=== PATIENT | female | born 1975 | race Caucasian/White ===

== ENCOUNTER → 2017-05-13 16:20 | Outpatient (CLI) | payer MEDICARE, MEDICAID, SELFPAY ==
--- NOTE | 2017-05-13 | CER_PTH ---
PATIENT: KELLE MEDEL LOC: [facility] U#:[id number] AGE/SX: 49/F ROOM: RE05/13/[address]: Dr. Connor Jiménez MD : 1975 BED: DIS: SPEC #: [id number] RECD: 05/13/17 16:18 STATUS: TOMMY RAMIRESVivek #: [id number] YARED: 05/13/17 00:[address]: Connor Jiménez DEPT: SURGICAL PATHOLOGY RECD BY: Rasheed Peace ENTERED: 05/14/17 08:52 SP TYPE: CERV OTHR DR: Dr. Charles Crump MD Tissues: Uterine cervix, NOS Procedures: Surgery Specimen Level IV HEADER OPERATION: ECC PRE-OP DIAGNOSIS: Postcoital bleeding TISSUE SUBMITTED: ECC MICROSCOPIC DIAGNOSIS Endocervix, curettings: Scant strips of benign superficial endocervix. AM:michael 05/15/17 COMMENT Case has been reviewed in consultation with Dr. Sherwood who concurs with the above diagnosis. IDC:SJ MICROSCOPIC DESCRIPTION Slides are reviewed. GROSS DESCRIPTION Received in fixative is one container labeled with the patient's name and designated ECC. The specimen consists of multiple fragments of hemorrhagic mucoid tissue that in aggregate measure 1.5 x 1 x 0.2 cm. The specimen is totally submitted in one cassette. / FRACISCO:michael 05/14/17 TC:5 [facility]: [id number]
[2017-05-16 12:41] LABS: HPV Reflexed? NOT INDICATED
== END ==
PROVIDERS: Family Provider Family Medicine; PCP Family Medicine; Visit Provider Obstetrics & Gynecology
DX: Z12.4 Encounter for screening for malignant neoplasm of cervix (principal); N93.0 Postcoital and contact bleeding
CPT/HCPCS: 88175; 88305; G0145

== ENCOUNTER 2017-05-25 07:14 | Day surgery (SDC) | payer MEDICARE, MEDICAID, SELFPAY ==
[2017-05-20 15:56] LABS: Hematocrit 39.4 % (37-47); Hemoglobin 12.7 g/dl (12.0-15.0); Mean Corp Hgb Conc 32.2 g/gl (32-36); Mean Corpuscular Hgb 30.2 pg (27.0-32.0); Mean Corpuscular Volume 93.8 fL (81-99); Mean Platelet Vol. 11.9 fl (6.2-12.0); Platelet Count 210 K/mm3 (150-450); RBC Distribution Width CV 13.1 % (11.6-14.6); RBC Distribution Width SD 44.7 fl (35.1-43.9); White Blood Count 7.2 K/mm3 (4.4-11.0)
[2017-05-20 15:57] LABS: Scan Indicated on CBC? Y/N NO
[2017-05-20 16:19] LABS: Pregnancy, Serum, hCG Quali. NEGATIVE Negative (0-9 Nonpreg)
[2017-05-20 16:21] LABS: Prothrombin Time (Protime)PT. 12.9 SECONDS (11.7-14.9)
[2017-05-20 16:22] LABS: Partial Thromboplast Time 31.5 Seconds (24.1-36.2)
[2017-05-24 12:54] VITALS: BP 126/69; PULSE 79; RESP 16; TEMP 36.1; O2SAT 100; BMI 30.5
--- NOTE | 2017-05-24 13:38 | HP.PCM_ITS ---
History and Physical Date of Admission: 05/25/17 Surgical History and Physical Carola Clark, a 41 year old female 3 0 2 0 3, presents for H/S, D and C and Dx L/S on May 25, 2017 at 8:30. -- Abdominal and Pelvic Pain, Irregular Menses -- Pain which began 2 1/2 - 3yrs ago. Carola claims it started gradually and has been present intermittantly for 3 years. It is located in the RLQ of the abdomen. Carola characterizes it to be non-radiating. Carola characterizes the quality sharp. Carola characterizes the quality searing. Severity is moderate; Severity is worsening; It is aggravated by sitting, bending, intercourse. Associated signs and symptoms are RLQ pain. Additional comments are : worsening, suspicious for endometriosis. Also some problems with irregular menses. MEDICATIONS HISTORY: Patient is also takin. Neurontin 300mg, TID 2. tramadol 100 mg tablet extended release 24 hr, PRN 3. metoprolol tartrate 100 mg tablet, One pill by mouth twice a day 4. gabapentin 300 mg capsule, 1 PO TID ALLERGIES: Zoloft, Severe nausea, Asa, Vomiting, Aspartame, Vomitting, Aspirin, Intolerance-vomiting, Aspartame, Intolerance-vomiting, Zoloft, Severe nausea & vomiting, Vicodin, Severe nausea & vomiting, Codeine and Difficulty breathing Infections - Chicken pox and Pneumonia Illnesses - DEPRESSION, Anxiety, chronic back hip pain and arthritis Accidents - no injuries of consequence Hospitalizations - Childbirth and see surgery Inflammatory Arthritis, Scoliosis; Review of Systems: GENERAL - Denies fever, or chills SKIN - Denies skin changes EYES - Denies visual changes EARS - Denies difficulty hearing NOSE - Denies nasal congestion or bleeding MOUTH - Denies sore throat or difficulty swallowing NECK - Denies pain or swelling RESPIRATORY - Denies shortness of breath or wheezing CARDIOVASCULAR - Denies palpitations or chest pain GASTROINTESTINAL - Denies nausea, vomiting, diarrhea, constipation GENITOURINARY - Denies dysuria, frequency of urination, incontinence of urine MUSCULOSKELETAL - Denies joint or muscle pain NEUROLOGICAL - Denies localized numbness or weakness PSYCHIATRIC - Denies depression or anxiety ENDOCRINE - Denies heat or cold intolerance, weight loss or gain HEMATO-IMMUNOLOGIC - Denies excesive bleeding with cuts SOCIAL HISTORY: Alcohol Use - denies drinking Smoking - denies smoking Diet - balanced Diet Lifestyle - high stress level, Exercise - minimal Seat Belt Use - always 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 Paternal history of Cousin with some type mouth cancer and Pat. Aunt -- Breast Ca. Mother: Heart Disease. MENSTRUAL HISTORY: LMP Known?- DefiniteAmount/Duration - 5 to 7 days, Regularity - Regular, Frequency - monthly days, LMP - 04/23/17, Age Onset Menarche - 9 PAST PREGNANCIES: Total Pregnancies - 5; Full Term Pregnancies - 3; Premature - 0; Abortions, Induced - 0; Abortions, Spontaneous - 1; Ectopics - 1; Multiple Births - 0; Living Children - 3 SURGICAL HISTORY: 1. 04/03/1999 rt salpingectomy/lap D ; Connor Jiménez M.D. - Ectopic 2. SCOLIOSIS--OLIVIER PLACEMENT ; - 3. CARPAL TUNNEL ; - 4. Breast lift 09' ; Dr. Tabor - 5. 03/23/2015 Kidney Stone Removal ; Dr. Hanks - PHYSICAL EXAM BP- 132/72 Sitting, Right arm, regular cuff Weight- 187.11860 lbs Height- 64.75 inch BMI:31.42 CONSTITUTIONAL - NAD, well nourished, and well developed SKIN - No rash, lesions, or ulcers HEENT - Normocephalic, PERRLA, EOMI NECK - No nodes, no nuchal rigidity and thyroid normal size and texture LYMPH NODES - Palpation of lymph nodes in neck and groins within normal limits LUNGS - CTA x2 without wheezes, crackles or rales CARDIAC - Regular rate and rhythm without rubs, murmurs, or gallops BREAST - No dominant masses, no tenderness, no axillary adenopathy, no nipple discharge, no skin changes and prior breast reduction ABDOMEN - Without hepatosplenomegaly, distention, masses, rebound, or guarding; normal bowel sounds; no hernias and marked tenderness to deep palpation in lower abdomen and adnexa EXTREMITIES - No edema or calf tenderness NEUROLOGICAL - Cranial nerves II-XII grossly intact PSYCHIATRIC - A and O to time, place, person, mood and affect External Genitial Vagina - non-tender without lesions Urethra/Urethral Meatus - non-tender Bladder - non-tender Vagina - vaginal domingo are pink and moist without loss of rugae and no evidence of atropy Cervix - without cervical motion tenderness and has normal size and features without evident lesions and mild to moderate CMT Uterus - multiparous size 6 cm & wt 75-125 g Adnexa - clear without massess or tenderness and 9-10 cm right adnexal fullness slightly tender ASSESSMENT/PLAN: Abnormal Uterine Bleeding, Unspec, Pelvic Pain, Unspec and Postcoital Bleeding Uncertain etiology but suspicious for endometriosis given severity and progressive nature. May also be some remnant of urologic problems with ongoing kidney stones. Pt desires proceeding with Dx L/S, D and C and H/S. Discussed RBAs and all questions answered. Hyst with BSO may at some point be necessary to relieve her of her pain.
[2017-05-25 07:50] LABS: Internal QC Validated? YES +Cl - CLEAR BKGD; Pregnancy, Urine Negative Negative
--- NOTE | 2017-05-25 08:45 | EMB_PTH ---
PATIENT: KELLE MEDEL [place] [facility] [id number] AGE/SX: 41/F ROOM: RE05/25/[address]: Dr. Connor Jiménez MD : 1975 BED: DIS: 05/25/2017 SPEC #: [id number] RECD: 05/25/17 10:18 STATUS: TOMMY CHAMBERS #: [id number] YARED: 05/25/17 08:[address]: Connor Jiménez DEPT: SURGICAL PATHOLOGY RECD BY: Jamaal Angulo ENTERED: 05/25/17 13:08 SP TYPE: ENDOM BX/C RICARDO DR: Dr. Charles Crump MD Tissues: Endometrium, NOS Procedures: Surgery Specimen Level IV HEADER OPERATION: Diagnostic laparoscopy PRE-OP DIAGNOSIS: Abnormal uterine bleeding: pelvic pain TISSUE SUBMITTED: Endometrial curettings MICROSCOPIC DIAGNOSIS Endometrial curettings: Early secretory endometrium with glandular and stromal breakdown. Fragments of myometrium. Fragments of benign endocervical mucosa. SJ:michael 05/26/17 MICROSCOPIC DESCRIPTION Slides are reviewed. GROSS DESCRIPTION Received in fixative is one container labeled with the patient's name and designated endometrial curettings. The specimen consists of multiple irregular fragments of pink hemorrhagic soft tissue mixed with blood clot that in aggregate measure 5 x 3 x 0.3 cm. The entire specimen is submitted in four cassettes. / FRACISCO:michael 05/25/17 TC:5 CPT: 07241
--- NOTE | 2017-05-25 09:09 | PCM.OP.BLANK ---
Operative Report Date of Procedure: 05/25/17 Surgeon: Connor Jiménez MD, FACOG Anesthesia: Fred Garcia MD Type of Anesthesia: General Endotracheal Pre-Op Diagnosis: Pelvic Pain, Irregular Menstrual Cycles. Postoperative diagnosis: Pelvic Pain, Irregular Menstrual Cycles, Submucous Fibroids, Severe Endometriosis, Wgmj-Kdkt-Vpnqjn Syndrome Procedure: Diagnostic laparoscopy, D&C Findings: 10 cm uterus with normal appearing fallopian tubes and ovaries. Evidence of prior right partial salpingectomy. 8 cm endometrial cavity with no polyps; 2-3 cm submucous fibroid noted at fundus of uterus with the endometrial curette. Powder burn endometriosis implants noted on the right and left uterosacral ligaments; more on the right than the left. Adhesions of the liver to the diaphragm. Liver was normal size but appeared slightly orange color. Normal-appearing left tube and ovary with the left ovary mildly adhered to the sidewall with some endometriosis present. Right ovary appeared normal without endometriosis present. The cervix was moderately large and bulbous and showed minimal descensus with tenaculum pulldown. Best approach for a vaginal hysterectomy if needed would be robotic. Indications: This is a 41 year old patient who has the above diagnosis. She understands that there is no guarantee that a D&C will relieve her of the bleeding problems that she has been having or that the laparoscopy will find a cause of her pelvic pain. All questions were answered to reconsider the patient well-informed. Procedure: The patient was taken to the operating room where after induction of general anesthesia, she was placed in the dorsolithotomy position and prepped and draped in the usual sterile fashion. The bladder was drained of approximately 150 cc of clear yellow urine with a catheter. Anterior cervix was grasped with the tenaculum. Cervix was dilated to about 7-8 mm and uterus was gently curetted removing all contents. Conn cannula was placed and attention was turned toward the laparoscopic portion of the procedure. Approximately 13 cc of half percent ropivacaine was injected subumbilically and suprapubically. A 5 mm bladeless trocar was placed subumbilically and intraperitoneal placement confirmed. After CO2 insufflation was complete, a 5 mm bladeless trocar was introduced suprapubically. The above findings were noted. The peritoneal cavity and upper abdomen were examined and above findings noted. Photographs were taken. Laparoscopic instruments with as much CO2 gas as possible were removed and incisions were closed with interrupted 4-0 Monocryl suture. Steri-Strips placed across the incisions. Patient tolerated procedure well was taken to recovery room in satisfactory condition sponge instrument and needle counts were all reportedly correct. Estimated blood loss for the case was minimal. Specimens to pathology was endometrial curettings
[2017-05-25] MEDS: Ropivacaine 0.5% 30 ML Vial (09:40)
[2017-05-25 10:00] VITALS: BP 123/61; BP 126/69; PULSE 77; RESP 18; TEMP 36.4; O2SAT 94
--- NOTE | 2017-05-25 10:01 | DCINST_ITS ---
Discharge Diet: No Restrictions Discharge Activity: Return to Normal Activity, May Drive - when you are no longer taking pain/narcotic medicines., May Shower, May Take a Tub Bath May resume sexual activity in: 2 weeks Additional Activity Instructions:: Ambulate often the next week after surgery. Nothing in the vagina for 5 days. Call your doctor if your incision/area has: Continuous Slow Oozing, Sudden Increased Bleeding, Increased Pain/ Swelling, Increased Redness, Foul Smelling Discharge Call your doctor if you observe: Fever of 101 or Higher, Inability to urinate, Inability to have a bowel movement, Using more than one pad per hour Allergies/Adverse Reactions: Allergies aspirin Adverse Reaction (Verified 05/21/17 12:58) Vomiting codeine Adverse Reaction (Verified 05/21/17 12:59) Shortness of breath hydrocodone bitartrate [From [place]] Adverse Reaction (Verified 05/21/17 12:58) Vomiting Medications to take at Discharge Gabapentin [Neurontin] 300 mg PO TIDCM 03/23/15 Metoprolol Tartrate [Lopressor (Beta Marissa)] 100 mg PO BID 03/23/15 RX: Oxycodone [Oxyir] 5 mg PO Q6H PRN PRN 7 Days #14 tab 05/25/17 The following prescriptions were given: RX: Oxycodone [Oxyir] 5 mg PO Q6H PRN PRN 7 Days #14 tab PRN Reason: Severe Pain (-12/16) Primary Care Physician: Charles Crump MD [Primary Care Provider] - Please Follow Up With: Connor Jiménez MD - [phone] When: 2-3 weeks
[2017-05-25 10:15] VITALS: BP 123/66; BP 126/69; PULSE 71; RESP 18; O2SAT 96
[2017-05-25 10:30] VITALS: BP 123/67; BP 126/69; PULSE 73; RESP 18; O2SAT 97
[2017-05-25 10:41] VITALS: BP 126/69; BP 127/80; PULSE 67; RESP 18; TEMP 36.2; O2SAT 98
[2017-05-25 12:45] VITALS: BP 126/69; BP 129/58; PULSE 73; RESP 18; TEMP 36.2; O2SAT 99
[2017-05-25 13:54] VITALS: BP 126/69
== END 2017-05-25 14:10 | disposition home or self-care (01) ==
LOC: SDC 07:14 → AC 07:15
PROVIDERS: Anesthesiology; Family Provider Family Medicine; PCP Family Medicine; Visit Provider Obstetrics & Gynecology
PROC: (CPT 49320; principal; 2017-05-25 08:30)
PROC: 0UDB8ZZ Extraction of Endometrium, Via Natural or Artificial Opening Endoscopic (ICD-10-PCS; CPT 58558; 2017-05-25 08:30)
DX: D25.0 Submucous leiomyoma of uterus (principal); N92.6 Irregular menstruation, unspecified; M41.9 Scoliosis, unspecified; M19.90 Unspecified osteoarthritis, unspecified site; G89.29 Other chronic pain; M25.559 Pain in unspecified hip; M54.9 Dorsalgia, unspecified; I10 Essential (primary) hypertension; Z79.899 Other long term (current) drug therapy
CPT/HCPCS: 00952; 58558; 36415; 81025; 84703; 85027; 85610; 85730; 86850; 86900; 88305; J3010; J7120; J2405

== ENCOUNTER → 2017-06-10 16:01 | Outpatient (CLI) | payer MEDICARE, MEDICAID, SELFPAY | PROVIDERS: Visit Provider Obstetrics & Gynecology | DX: N39.0 Urinary tract infection, site not specified (principal) | CPT/HCPCS: 87086; 87088 ==

== ENCOUNTER → 2017-07-24 09:31 | Outpatient (CLI) | payer MEDICARE, MEDICAID, SELFPAY ==
[2017-07-24 13:28] LABS: Anion Gap 10 (5-15); BUN 9 mg/dL (7-18); BUN/Creat Ratio 9.2 RATIO (10-20); Calcium,Total 8.9 mg/dL (8.5-10.1); Chloride 107 mmol/L (98-107); Cholesterol 168 mg/dL (200); Creatinine, Serum 0.98 mg/dL (0.55-1.02); EST Glomerular Filtration Rate 66 mL/min (>60); Est Glom Filt Rate - Afr Amer 79 mL/min (>60); Glucose 86 mg/dL (74-106); High Density Lipoprotein 38 mg/dL; Potassium 4.4 mmol/L (3.5-5.1); Sodium Level 140 mmol/L (136-145); Triglycerides 129 mg/dL; Very Low Density Lipoprotein 26 mg/dL (5-40)
== END ==
PROVIDERS: Family Provider Family Medicine; PCP Family Medicine; Visit Provider Family Medicine
DX: I10 Essential (primary) hypertension (principal)
CPT/HCPCS: 36415; 80048; 80061

== ENCOUNTER → 2018-01-25 11:34 | Outpatient (CLI) | payer MEDICARE, MEDICAID, SELFPAY ==
[2017-05-24 12:54] VITALS: BMI 30.5
[2018-01-25 15:02] LABS: Anion Gap 12 (5-15); BUN 8 mg/dL (7-18); BUN/Creat Ratio 8.4 RATIO (10-20); Calcium,Total 9.1 mg/dL (8.5-10.1); Chloride 105 mmol/L (98-107); Cholesterol 181 mg/dL (200); Creatinine, Serum 0.95 mg/dL (0.55-1.02); EST Glomerular Filtration Rate 68 mL/min (>60); Est Glom Filt Rate - Afr Amer 82 mL/min (>60); Glucose 79 mg/dL (74-106); High Density Lipoprotein 36 mg/dL; Potassium 4.4 mmol/L (3.5-5.1); Sodium Level 143 mmol/L (136-145); Triglycerides 191 mg/dL; Very Low Density Lipoprotein 38 mg/dL (5-40)
== END ==
PROVIDERS: Family Provider Family Medicine; PCP Family Medicine; Visit Provider Family Medicine
DX: I10 Essential (primary) hypertension (principal)
CPT/HCPCS: 36415; 80048; 80061

== ENCOUNTER → 2018-04-24 09:58 | Outpatient (CLI) | payer MEDICARE, MEDICAID, SELFPAY ==
[2017-05-24 12:54] VITALS: BMI 30.5
--- NOTE | 2018-04-24 10:30 | RAD_ITS ---
STUDY: X-RAY - THORACIC SPINE REASON FOR EXAM: Female, 42 years old. Progressing back pain over the last 3 weeks, painful to walk and stand up TECHNIQUE: 3 view(s) of the thoracic spine were obtained. COMPARISON: None. FINDINGS: Normal kyphosis of the thoracic spine. There is mild levoscoliosis with posterior fusion hardware extending from the upper thoracic spine to the mid lumbar spine. Normal thoracic vertebrae and endplates. There is multilevel disc space narrowing of the thoracic spine. The soft tissue structures are unremarkable. RAD/Thoracic Spine 3 Views IMPRESSION: 1. Thoracolumbar fusion with mild levoscoliosis. 2. Disc space narrowing at multiple levels. Electronically Signed: Aldo Valenzuela MD at 11:37 EST , Service support ,
--- NOTE | 2018-04-24 10:30 | RAD_ITS ---
STUDY: X-RAY - LUMBAR SPINE REASON FOR EXAM: Female, 42 years old. Back and neck pain increasing over last 3 weeks TECHNIQUE: 5 view(s) of the lumbar spine were obtained. COMPARISON: CT from 01/15/2017 FINDINGS: There is straightening of the normal lumbar lordosis. There is no substantial scoliosis. There is a normal alignment of the vertebrae. There is multilevel endplate spondylosis of the lumbar vertebrae. Disc space narrowing at L3-L4, L4-L5 and minimally at L5-S1 similar since prior abdomen/pelvis CT of 01/25/2017. Thoracolumbar fusion hardware identified, extending to L3 level. No obvious pars defects. The soft tissue structures are unremarkable. RAD/L/S Spine Min 4 Views IMPRESSION: 1. Similar-appearing degenerative disc disease of the lower lumbar spine since prior abdomen/pelvis CT of 01/25/2017. 2. Thoracolumbar fusion. Electronically Signed: Aldo Valenzuela MD at 11:36 EST , Service support ,
--- NOTE | 2018-04-24 10:30 | RAD_ITS ---
STUDY: X-RAY - CERVICAL SPINE REASON FOR EXAM: Female, 42 years old. Back and neck pain increasing over the last 3 weeks TECHNIQUE: 5 view(s) of the cervical spine were obtained. COMPARISON: None FINDINGS: Normal anterior atlantoaxial articulation. Normal odontoid process. There is straightening of the normal cervical lordosis. There is multi-level endplate spondylosis. There is multi-level degenerative disc disease with multilevel disc space narrowing. Mild bony encroachment of bilateral C3-C4 and left C4-C5. Fusion hardware of the upper thoracic spine partially visualized. RAD/Cerv Spine 4 or 5 Views IMPRESSION: Moderate degenerative disc disease with left more than right foraminal narrowing. Electronically Signed: Aldo Valenzuela MD at 11:33 EST , Service support ,
== END ==
PROVIDERS: Family Provider Family Medicine; PCP Family Medicine; Referring Provider Family Medicine; Visit Provider Family Medicine
DX: M54.9 Dorsalgia, unspecified (principal)
CPT/HCPCS: 72050; 72072; 72110

== ENCOUNTER → 2018-05-14 07:27 | Outpatient (CLI) | payer MEDICARE, MEDICAID, SELFPAY ==
--- NOTE | 2018-05-14 07:30 | CT_ITS ---
STUDY: CT ABDOMEN AND PELVIS WITH CONTRAST REASON FOR EXAM: Female, 42 years old. Pain, bloating for one year, history of endometriosis history of a fallopian tube removal. RADIATION DOSAGE (If Supplied By Facility): CTDIvol = ( 16.61 ) mGy, DLP = ( 1087.21 ) mGycm TECHNIQUE: Transaxial images were obtained from the dome of the diaphragm to the symphysis pubis with oral contrast. Isovue 300 100mL IV/Oral was administered. Sagittal and coronal images were reconstructed. Individualized dose optimization techniques were used for this CT. COMPARISON: January 15, 2017 CT scan abdomen and pelvis FINDINGS: There is a right-sided breast implant. The visualized portions of the heart are within normal limits. The liver is enlarged and fatty infiltrated. Normal gallbladder and extrahepatic biliary system. Normal spleen. Normal pancreas. Normal bilateral adrenal glands. There is right-sided pelviectasis. There is a tortuous appearance of the right ureter. There is moderate left renal atrophy. There is mild left hydronephrosis mild distention of the left ureter. There are no visualized stones along the course of the left ureter. Normal visualized stomach. Normal small intestine. There is abundant stool contrast in the colon. The appendix is visualized and appears normal. Aorta is partially calcified.. Normal inferior vena cava. There is a retroperitoneal lymph node measuring 1.1 cm image #63. Similar to prior study. Normal urinary bladder. The uterus is enlarged measuring 12 x 6 x 8.3 cm. The uterus appears mildly inhomogeneous. This is similar to the prior study. There is a left ovarian cyst measuring 1.6 cm. Normal abdominal wall. There is visible scoliosis. There is dextroscoliosis of the midthoracic spine. There are bilateral Gilbert rods demonstrated is straightening of the physiologic lordosis. There is degenerative change at L4-5 with disc space narrowing spondylosis. CT/Abdomen/Pelvis WITH Contrast IMPRESSION: Tpol-lm-ffprjbif constipation. There is mild left hydronephrosis greater distention than most recent prior study. There is moderate left renal atrophy. There is minimal right pelviectasis. Enlarged fatty infiltrated liver Scoliosis status post spinal fusion. Enlarged uterus similar to the prior study. Could consider follow-up ultrasound. The uterus may contain fibroids. Small left ovarian cyst. Electronically Signed: Sarahi Haney MD at 10:48 EST Tel , Service support ,
== END ==
PROVIDERS: Family Provider Family Medicine; PCP Family Medicine; Referring Provider Obstetrics & Gynecology; Visit Provider Obstetrics & Gynecology
DX: R10.9 Unspecified abdominal pain (principal); R10.2 Pelvic and perineal pain; R14.0 Abdominal distension (gaseous); N80.9 Endometriosis, unspecified
CPT/HCPCS: 74177; Q9967

== ENCOUNTER → 2018-05-20 17:21 | Outpatient (CLI) | payer MEDICARE, MEDICAID, SELFPAY | PROVIDERS: Family Provider Family Medicine; PCP Family Medicine; Referring Provider Nurse Practitioner Adult Health; Visit Provider Nurse Practitioner Adult Health | DX: R30.0 Dysuria (principal) | CPT/HCPCS: 87077; 87086; 87088; 87186 ==

== ENCOUNTER → 2018-05-27 12:09 | Outpatient (CLI) | payer MEDICARE, MEDICAID, SELFPAY ==
[2017-05-24 12:54] VITALS: BMI 30.5
[2018-05-27 14:34] LABS: AST(SGOT) 24 U/L (15-37); Alanine Aminotransfer ALT/SGPT 37 U/L (13-56); Albumin, Serum 3.5 g/dL (3.2-5.0); Alkaline Phosphatase 69 U/L (45-117); Anion Gap 6 (5-15); BUN 10 mg/dL (7-18); BUN/Creat Ratio 11.6 RATIO (10-20); Calcium,Total 8.8 mg/dL (8.5-10.1); Chloride 106 mmol/L (98-107); Cholesterol 157 mg/dL (200); Creatinine, Serum 0.86 mg/dL (0.55-1.02); EST Glomerular Filtration Rate 76 mL/min (>60); Est Glom Filt Rate - Afr Amer 91 mL/min (>60); Globulin 3.6 g/dL (2.2-4.2); Glucose 88 mg/dL (74-106); High Density Lipoprotein 34 mg/dL; Potassium 4.1 mmol/L (3.5-5.1); Protein, Total 7.1 g/dL (6.4-8.2); Sodium Level 140 mmol/L (136-145); Triglycerides 175 mg/dL; Very Low Density Lipoprotein 35 mg/dL (5-40)
[2018-05-28 06:06] LABS: HEPATITIS B SURFACE AG Negative (Negative); Hepatitis A AB, Total Negative (Negative); Hepatitis A IgM Antibody Negative (Negative); Hepatitis B Core AB IgM Negative (Negative); Hepatitis B Core Ab Total Negative (Negative); Hepatitis C Ab <0.1 s/co ratio (0.0-0.9)
[2018-05-28 11:25] LABS: Hep B Surface Antibodies Non Reactive (.)
== END ==
PROVIDERS: Family Provider Family Medicine; PCP Family Medicine; Referring Provider Family Medicine; Visit Provider Family Medicine
DX: I10 Essential (primary) hypertension (principal); R16.0 Hepatomegaly, not elsewhere classified
CPT/HCPCS: 36415; 80053; 80061; 86704; 86705; 86706; 86708; 86709; 86803; 87340

== ENCOUNTER → 2018-09-20 | Outpatient (CLI) | payer MEDICARE, MEDICAID, SELFPAY ==
[2017-05-24 12:54] VITALS: BMI 30.5
[2018-09-20 13:01] LABS: AST(SGOT) 21 U/L (15-37); Alanine Aminotransfer ALT/SGPT 31 U/L (13-56); Albumin, Serum 3.4 g/dL (3.2-5.0); Alkaline Phosphatase 71 U/L (45-117); Anion Gap 5 (5-15); BUN 9 mg/dL (7-18); BUN/Creat Ratio 10.2 RATIO (10-20); Calcium,Total 8.5 mg/dL (8.5-10.1); Chloride 106 mmol/L (98-107); Creatinine, Serum 0.88 mg/dL (0.55-1.02); EST Glomerular Filtration Rate 74 mL/min (>60); Est Glom Filt Rate - Afr Amer 89 mL/min (>60); Globulin 3.4 g/dL (2.2-4.2); Glucose 133 mg/dL (74-106); Potassium 3.6 mmol/L (3.5-5.1); Protein, Total 6.8 g/dL (6.4-8.2); Sodium Level 140 mmol/L (136-145)
== END | disposition home or self-care (01) ==
LOC: MFPLAB 11:19
PROVIDERS: Family Provider Family Medicine; PCP Family Medicine; Visit Provider Family Medicine
DX: I10 Essential (primary) hypertension (principal)
CPT/HCPCS: 36415; 80053

== ENCOUNTER → 2018-12-16 11:23 | Outpatient (CLI) | payer MEDICARE, OTHER, SELFPAY ==
[2017-05-24 12:54] VITALS: BMI 30.5
[2018-12-16 12:25] LABS: Absolute Lymphocyte Count 2.32 X10^3/uL (0.83-4.51); Absolute Neutrophil Count 5.5 X10^3/uL (2.0-7.7); Basophil# 0.05 X10^3/uL; Basophil% 0.6 % (0-1); Eosinophil# 0.24 X10^3/uL; Eosinophils% 2.7 % (0-5); Hematocrit 41.4 % (37-47); Hemoglobin 13.6 g/dL (12.0-15.0); Lymphocyte # 2.32 X10^3/ul (4.0); Lymphocyte % 26.5 % (19-41); Mean Corp Hgb Conc 32.9 g/dL (32-36); Mean Corpuscular Hgb 30.6 pg (27.0-32.0); Mean Corpuscular Volume 93.2 fL (81-99); Monocyte# 0.63 X10^3/uL; Monocyte% 7.2 % (0-10); NRBC Flagged by Analyzer 0 % (0-5); Neutrophil # 5.48 X10^3/uL (2.7-7.7); Neutrophil % 62.5 % (47-70); Platelet Count 242 K/mm3 (150-450); RBC Distribution Width CV 12.3 % (11.6-14.6); RBC Distribution Width SD 42.4 fl (35.1-43.9); Red Blood Count 4.44 M/mm3 (4.2-5.4); White Blood Count 8.8 K/mm3 (4.4-11.0)
[2018-12-16 12:58] LABS: Anion Gap 8 (5-15); BUN 11 mg/dL (7-18); BUN/Creat Ratio 12.6 RATIO (10-20); Calcium,Total 9.1 mg/dL (8.5-10.1); Chloride 105 mmol/L (98-107); Creatinine, Serum 0.87 mg/dL (0.55-1.02); EST Glomerular Filtration Rate 74 mL/min (>60); Est Glom Filt Rate - Afr Amer 90 mL/min (>60); Glucose 83 mg/dL (74-106); Potassium 4.3 mmol/L (3.5-5.1); Sodium Level 141 mmol/L (136-145)
== END ==
PROVIDERS: Family Provider Family Medicine; PCP Family Medicine; Referring Provider Family Medicine; Visit Provider Family Medicine
DX: Z00.00 Encounter for general adult medical examination without abnormal findings (principal); I10 Essential (primary) hypertension
CPT/HCPCS: 36415; 80048; 85025

== ENCOUNTER 2019-01-17 05:33 | Day surgery (SDC) | payer OTHER, MEDICARE, SELFPAY ==
[2017-05-24 12:54] VITALS: BMI 30.5
[2019-01-12 12:49] LABS: Hematocrit 41.9 % (37-47); Hemoglobin 13.7 g/dL (12.0-15.0); Mean Corp Hgb Conc 32.7 g/dL (32-36); Mean Corpuscular Hgb 30.8 pg (27.0-32.0); Mean Corpuscular Volume 94.2 fL (81-99); Mean Platelet Vol. 11.6 fl (6.2-12.0); Platelet Count 256 K/mm3 (150-450); RBC Distribution Width CV 12.6 % (11.6-14.6); Red Blood Count 4.45 M/mm3 (4.2-5.4); White Blood Count 10.1 K/mm3 (4.4-11.0)
[2019-01-12 12:52] LABS: International Normalized Ratio 1.1; Partial Thromboplast Time 33.1 Seconds (24.1-36.2); Prothrombin Time (Protime)PT. 13.7 SECONDS (11.7-14.9)
[2019-01-12 13:04] LABS: Creatinine, Serum 0.85 mg/dL (0.55-1.02); EST Glomerular Filtration Rate 77 mL/min (>60); Est Glom Filt Rate - Afr Amer 93 mL/min (>60)
--- NOTE | 2019-01-16 16:33 | HP.PCM_ITS ---
History and Physical Date of Admission: 01/17/19 Surgical History and Physical Carola Clark, a 43 year old female 3 0 2 0 3, presents for RAVH/BSO on January 17, 2019 at 7:30. -- Abdominal and Pelvic Pain; Severe Endometriosis -- Reports several months ago she started with pain after intercourse, then RLQ pain started a couple weeks ago and turns into low abdominal pain that radiates around to her back. Pt sts she began having RLQ abdominal pain 2 1/2-3yrs ago. This is described as a stabbing/searing intermittently with certain movements such as bending over. She also notes mid lower abd pain with intercourse and when exercising and whenever she has the midline pain she also has vaginal spotting/bleeding. Postcoital bleeding intermittentlty for the past year. Abdominal pain which began 4-5 weeks. Carola claims it started gradually and has been present years. It occurs all the time. It is located in the lower abdomen. Carola characterizes it to be upwards to the back. Carola characterizes the quality cramping.; Carola characterizes the quality aching.; Carola characterizes the quality stabbing. Severity is moderate and not improving; Additional comments are: known endometriosis.; Additional comments are: pain seems to be constant and worsening over time.; Additional comments are: CT scan showed unchanged kidneys and ureter (although abnormal) per Dr. Sosa; showed enlarged fatty liver. Vasectomy for BC. MEDICATIONS HISTORY: Patient is also takin. metoprolol tartrate 100 mg tablet, One pill by mouth twice a day 2. gabapentin 300 mg capsule, 1 PO TID 3. cyclobenzaprine 10 mg tablet, One pill by mouth three times a day prn ALLERGIES: Zoloft, Severe nausea, Asa, Vomiting, Aspartame, Vomitting, Aspirin, Intolerance-vomiting, Aspartame, Intolerance-vomiting, Zoloft, Severe nausea & vomiting, Vicodin, Severe nausea & vomiting, Codeine and Difficulty breathing Infections - Chicken pox and Pneumonia Illnesses - DEPRESSION, Anxiety, chronic back hip pain and arthritis Accidents - no injuries of consequence Hospitalizations - Childbirth and see surgery Inflammatory Arthritis, Scoliosis; Review of Systems: GENERAL - Denies fever, or chills SKIN - Denies skin changes EYES - Denies visual changes EARS - Denies difficulty hearing NOSE - Denies nasal congestion or bleeding MOUTH - Denies sore throat or difficulty swallowing NECK - Denies pain or swelling RESPIRATORY - Denies shortness of breath or wheezing CARDIOVASCULAR - Denies palpitations or chest pain GASTROINTESTINAL - Denies nausea, vomiting, diarrhea, constipation GENITOURINARY - Denies dysuria, frequency of urination, incontinence of urine MUSCULOSKELETAL - Denies joint or muscle pain NEUROLOGICAL - Denies localized numbness or weakness PSYCHIATRIC - Denies depression or anxiety ENDOCRINE - Denies heat or cold intolerance, weight loss or gain HEMATO-IMMUNOLOGIC - Denies excesive bleeding with cuts SOCIAL HISTORY: Alcohol Use - denies drinking Smoking - denies smoking Diet - balanced Diet Lifestyle - high stress level, Exercise - minimal Seat Belt Use - always 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 Paternal history of Cousin with some type mouth cancer and Pat. Aunt -- Breast Ca. Mother: Heart Disease. MENSTRUAL HISTORY: LMP Known?- DefiniteAmount/Duration - 5 to 7 days, Regularity - Regular, Frequency - monthly days, LMP - 12/26/18, Age Onset Menarche - 9 PAST PREGNANCIES: Total Pregnancies - 5; Full Term Pregnancies - 3; Premature - 0; Abortions, Induced - 0; Abortions, Spontaneous - 1; Ectopics - 1; Multiple Births - 0; Living Children - 3 SURGICAL HISTORY: 1. 04/03/1999 rt salpingectomy/lap D ; Connor Jiménez M.D. - Ectopic 2. SCOLIOSIS--OLIVIER PLACEMENT 3. CARPAL TUNNEL 4. Breast lift 09' ; Dr. Tabor 5. 03/23/2015 Kidney Stone Removal ; Dr. Hanks 6. 05/25/2017 Dx laparoscopy, D and C ; Connor Jiménez M.D. PHYSICAL EXAM BP- 124/82 Sitting, Right arm, regular cuff Weight- 197.75329 lbs Height- 64.75 inch BMI:33.11 CONSTITUTIONAL - NAD, well nourished, and well developed SKIN - No rash, lesions, or ulcers HEENT - Normocephalic, PERRLA, EOMI NECK - No nodes, no nuchal rigidity and thyroid normal size and texture LYMPH NODES - Palpation of lymph nodes in neck and groins within normal limits LUNGS - CTA x2 without wheezes, crackles or rales CARDIAC - Regular rate and rhythm without rubs, murmurs, or gallops BREAST - No dominant masses, no tenderness, no axillary adenopathy, no nipple discharge, no skin changes ABDOMEN - Without hepatosplenomegaly, distention, masses, rebound, or guarding; normal bowel sounds; no hernias and diffusely tender to palpation with mild bloating EXTREMITIES - No edema or calf tenderness NEUROLOGICAL - Cranial nerves II-XII grossly intact PSYCHIATRIC - A and O to time, place, person, mood and affect External Genital Vagina - non-tender without lesions Urethra/Urethral Meatus - non-tender Bladder - non-tender Vagina - vaginal domingo are pink and moist without loss of rugae and no evidence of atropy Cervix - without cervical motion tenderness and has normal size and features without evident lesions and mild to moderate CMT Uterus - multiparous size 6 cm & wt 75-125 g Adnexa - clear without masses or tenderness ASSESSMENT/PLAN: Endometriosis Nos, Pelvic Pain and Unspec Worsening sxs. Discussed options for treatment and pt desires proceeding with RAVH/BSO. Discussed RBAs including need for ocean transportation intermediary HRT and all questions answered.
[2019-01-17] VITALS (17 sets, daily range): BP systolic 116–143; BP diastolic 58–89; PULSE 67–104; RESP 14–18; TEMP 35.7–37.6; O2SAT 92–100; BMI 33.0
[2019-01-17 06:04] LABS: Internal QC Validated? YES +Cl - CLEAR BKGD; Pregnancy, Urine Negative Negative
[2019-01-17] MEDS: Lactated Ringers 1,000 ML 100 ML IV ×2 (06:19→06:23)
--- NOTE | 2019-01-17 07:30 | HYST_PTH ---
PATIENT: KELLE MEDEL LOC: [facility] [place] U#:[id number] AGE/SX: 43/F ROOM: RE01/17/[address]: Dr. Connor Jiménez MD : 1975 BED: DIS: 01/18/2019 SPEC #: [id number] RECD: 01/17/19 11:15 STATUS: TOMMY REYES #: [id number] YARED: 01/17/19 07:[address]: Connor Jiménez DEPT: SURGICAL PATHOLOGY RECD BY: Dilip Ruiz ENTERED: 01/17/19 12:12 SP TYPE: HYSTERECT OTHR DR: Dr. Charles Crump MD Tissues: Uterus, NOS Procedures: Surgery Specimen Level V HEADER OPERATION: Robotic assisted vaginal hysterectomy, left salpingo-oophorectomy PRE-OP DIAGNOSIS: Abdominal and pelvic pain; severe endometriosis TISSUE SUBMITTED: Uterus, cervix, left fallopian tube, bilateral ovaries MICROSCOPIC DIAGNOSIS Uterus, hysterectomy: Cervix - nabothian cysts and mild chronic inflammation. Endometrium - secretory endometrium. Myometrium - leiomyomas and superficial adenomyosis. Right and left ovaries - follicular cysts, corpus luteal cysts and corpora albicantia. Left fallopian tube - benign paratubal cyst. AM:michael 01/18/19 MICROSCOPIC DESCRIPTION Slides are reviewed. GROSS DESCRIPTION Received in fixative is one container labeled with the patient's name and designated uterus. The specimen consists of a uterus with attached cervix and attached right ovary, detached left fallopian tube and left ovary. The uterus with cervix measures 4.5 x 5 x 6 cm and weighs 221 gm. The ectocervix is unremarkable. The cervical os is [place] in contour. The endocervical canal measures 4.5 cm in length and is grossly unremarkable. The triangular endometrial cavity measures 5 x 4.2 cm. The velvety, light argueta endometrium measures up to 0.3 cm in thickness. The myometrium measures 2.5 cm in average thickness and contains three rubbery nodules ranging in size from 0.5 to 1 cm. The nodules are intramural in location. The right ovary is argueta-pink in color and has a crinkled external surface and measures 4 x 2.5 x 1 cm. Serial sections do not reveal mass lesions. The left ovary is similar in appearance and measures 4.5 x 2 x 1.6 cm. Serial sections reveal a cyst measuring 2 cm in greatest dimension. Also present are smaller cysts containing clear to bloody fluid averaging 0.5 cm in greatest dimension. The adjacent left fallopian tube measures 5.5 cm in length. The fimbriated end appears to be normal. [employer] Sales Consultant sections are submitted in ten cassettes as follows: 1 - anterior cervix, 2 - posterior cervix, 3 & 4 - anterior myometrial wall, 5 & 6 - posterior myometrial mass, 7 - myometrial masses, 8 - right ovary, 9 - left ovary, 10 - left fallopian tube. / AM:michael 01/17/19 TC:1 CPT: 93399
--- NOTE | 2019-01-17 07:36 | PCM.OPRPT ---
Report of Operation Date of Procedure: 01/17/19 Pre-Operative Diagnosis: Abdominal and Pelvic Pain; Severe Endometriosis Post-Operative Diagnosis: Abdominal and Pelvic Pain; Severe Endometriosis Surgery/Procedure Performed:: Robotic Assisted Vaginal Hysterectomy and Bilateral Oophorectomy, Left Salpingectomy Description of Surgical Findings:: 12 cm uterus with normal-appearing fallopian tubes and ovaries. Right fallopian tube absent from prior salpingectomy due to ectopic . Powder hunter present in cul-de-sac consistent with endometriosis. ventilation equipment tender: Israel Rico Type of Anesthesia:: General - Endotracheal Anesthesiologist: Lauri Maldonado Drains: Salgado to straight drain Estimated Blood Loss (mL): Minimal Fluids Replaced: Crystalloid Description of Procedure: Surgeon: Connor Jiménez MD, FACOG Indication: This is a 43 year old patient who has been having problems with severe pelvic pain and endometriosis. Conservative measures have not been helpful. The patient has been counseled regarding the risks, benefits and alternatives of this procedure including the possibility of bleeding, infection, and injury to surrounding structures such as bowel bladder and all questions were answered. She understands that with BSO she may need to be on HRT for an indefinite period of time. Procedure: Pt taken to the operating room where, after induction of general anesthesia, the patient was prepped and draped in the usual sterile fashion and placed on a non-slip Huggy-u-vac device. Trendelenburg test was satisfactory. Bladder was drained of urine with a Salgado catheter which was left in place. Anterior cervix grasped and cervix was dilated to about 3-4 mm. Uterus sounded to 12 cms. 0-Vicryl suture was placed at the 3:00 and 9:00 position of the cervix. A large Advincula Efficiency Miner Uterine Manipulator was then placed in the uterus and attention was turned to the laparoscopic portion of the procedure. Ropivocaine 0.5% was injected approximately 2-3 cm superior to the umbilicus and an 8 mm robotic camera port was introduced directly with intraperitoneal placement confirmed with CO2 insufflation. 8 mm robotic side ports were introduced under direct visualization approximately 11 cm lateral and 2 cm inferior to the umbilical port. A 5 mm left upper quadrant port was introduced and airseal insufflation with CO2 was started. The above findings were noted. Robot was docked without difficulty and attention turned to the robotic portion of the procedure. Approximately 30 cc of Ropivicaine was used. Bilateral infundibulopelvic ligaments were ligated with 35 jackson bipolar coagulation to the level of the round ligament. The posterior aspect of the cervix was identified and then opened for about 1 cm using 25 watt monopolar cautery. Bladder flap was opened and divided to the level of the round ligaments using monopolar cautery. Progressive bites were then ligated on each side of the cervix with 35 jackson bipolar cautery to the uterine arteries. The anterior vaginal mucosa was entered and cervix circumscribed with monopolar cautery. Uterus and attached left tube and ovaries were removed through the vagina. Vaginal cuff was closed first with 0-Vicryl Taryn stitches placed at each angle followed by closure of the mid-cuff with 0-Monocryl V-lock suture in two layers. Pelvis was copiously irrigated with saline and the right ureter was noted to peristalse. Robot was undocked and trocars were removed with as much gas as possible. Incisions were closed with 4-0 Monocryl subcuticular sutures and incisions covered with steri-strips. The patient tolerated the procedure well and was taken to the recovery room in satisfactory condition. Sponge, instruments and needle counts were all correct. There were no apparent complications of the surgery. Cefotan 2 gms IV was given prior to the procedure. Grafts/Implants Used: None - Complications None - Admit VTE Documentation VTE Present on Admission: Yes VTE Mechan Device Prophylaxis: SCD's VTE Pharm Prophylaxis ordered?: Yes
--- NOTE | 2019-01-17 07:38 | DCINST_ITS ---
Discharge Diet: No Restrictions Discharge Activity: Return to Normal Activity, May Not Drive - while taking narcotic pain medications., May Shower May resume sexual activity in: 6-8 weeks Call your doctor if your incision/area has: Continuous Slow Oozing, Sudden Increased Bleeding, Increased Pain/ Swelling, Increased Redness, Foul Smelling Discharge Call your doctor if you observe: Fever of 101 or Higher, Inability to urinate, Inability to have a bowel movement, Using more than one pad per hour Allergies/Adverse Reactions: Allergies aspartame Adverse Reaction (Verified 01/17/19 05:49) Vomiting aspirin Adverse Reaction (Verified 01/17/19 05:49) Vomiting codeine Adverse Reaction (Verified 01/17/19 05:49) Shortness of breath hydrocodone bitartrate [From Iselin] Adverse Reaction (Verified 01/17/19 05:49) Vomiting fennel Allergy (Uncoded 01/17/19 05:49) Food Allergy Medications to take at Discharge Gabapentin [Neurontin] 300 mg PO TIDCM 03/23/15 Metoprolol Tartrate [Lopressor (Beta Marissa)] 100 mg PO BID 03/23/15 Ibuprofen 200 mg PO PRN PRN 01/10/19 Docusate Sodium [Colace] 100 mg PO BID PRN PRN #60 cap 01/17/19 Estradiol 2 mg PO DAILY #100 tab 01/17/19 Oxycodone [Oxyir] 5 mg PO Q6H PRN PRN 7 Days #20 tab 01/17/19 The following prescriptions were given: Docusate Sodium [Colace] 100 mg PO BID PRN PRN #60 cap PRN Reason: Constipation Prescription Printed Estradiol 2 mg PO DAILY #100 tab Prescription Printed Oxycodone [Oxyir] 5 mg PO Q6H PRN PRN 7 Days #20 tab PRN Reason: Pain Score 6-10/10 Prescription Printed Primary Care Physician: Charles Crump MD [Primary Care Provider] - Test Results: Test results from this visit will be discussed in further detail at your follow- up appointment, if applicable. Please Follow Up With: Connor Jiménez MD When: 2 to 3 weeks
[2019-01-17] MEDS: Lubricating Jelly 60 GM Tube 30 GM TOPICAL (07:52)
[2019-01-17] MEDS: Ropivacaine 0.5% 30 ML Vial (08:00)
[2019-01-17] MEDS: Ketorolac 30 MG/ML Syringe IV ×3 (09:45→22:09)
[2019-01-17] MEDS: Ondansetron 4 MG/2 ML Vial IV ×2 (11:00→17:08)
[2019-01-17] MEDS: Dextrose 5%-Lactated Ringers 1,000 ML 150 ML IV ×2 (12:58→19:25)
[2019-01-17] MEDS: Estrogens,Conj. 1.25 MG Tablet PO (15:08)
[2019-01-17] MEDS: Enoxaparin 30 MG/0.3 ML Syringe SC (17:10)
[2019-01-17] MEDS: Gabapentin 300 MG Capsule PO (17:12)
[2019-01-17] MEDS: Metoprolol Tartrate 100 MG Tablet PO (22:07)
[2019-01-17] MEDS: 0.9% Saline Lock 10 ML Syringe IV (22:09)
[2019-01-18 02:48] VITALS: BP 137/72; PULSE 81; RESP 16; TEMP 37.3; O2SAT 96
[2019-01-18] MEDS: Ketorolac 30 MG/ML Syringe IV (03:00)
[2019-01-18] MEDS: 0.9% Saline Lock 10 ML Syringe IV (03:00)
[2019-01-18 05:49] LABS: Hematocrit 35.7 % (37-47); Hemoglobin 11.7 g/dL (12.0-15.0); Mean Corp Hgb Conc 32.8 g/dL (32-36); Mean Corpuscular Volume 94.4 fL (81-99); Mean Platelet Vol. 11.7 fl (6.2-12.0); Platelet Count 182 K/mm3 (150-450); RBC Distribution Width CV 12.9 % (11.6-14.6); RBC Distribution Width SD 43.9 fl (35.1-43.9); Red Blood Count 3.78 M/mm3 (4.2-5.4); White Blood Count 13.7 K/mm3 (4.4-11.0)
[2019-01-18 06:08] LABS: Creatinine, Serum 1.06 mg/dL (0.55-1.02); EST Glomerular Filtration Rate 60 mL/min (>60); Est Glom Filt Rate - Afr Amer 72 mL/min (>60); Estimated Creatinine Clearance 60.31 ml/min
--- NOTE | 2019-01-18 08:14 | PCM.PN.OB ---
Subjective: Patient without complaints. Tolerating diet well. Positive flatus. Minimal vaginal bleeding. - Physical Exam Vitals/I&O's: Vital Signs Temp Pulse Resp BP Pulse Ox 99.2 F H 81 16 137/72 H 96 01/18/19 02:48 01/18/19 02:48 01/18/19 02:48 01/18/19 02:48 01/18/19 02:48 Oxygen Delivery Method Room Air Weight: 198 lb 3.129 oz Body Mass Index (BMI) 33.0 Intake and Output for Last 24 Hours 01/16/19 01/17/19 01/18/19 23:59 23:59 23:59 Intake Total 3300.0 / 3300.0 1247.5 / 1247.5 Output Total 1275 / 1275 500 / 500 Balance 2025.0 / 2025.0 747.5 / 747.5 Comment: Wounds clean, dry, intact. Good urine output. Hemoglobin creatinine okay. Laboratory Results 01/18/19 05:32: WBC 13.7 H, RBC 3.78 L, Hgb 11.7 L, Hct 35.7 L, MCV 94.4, MCH 31.0, MCHC 32.8, RDW Std Deviation 43.9, RDW Coeff of Jose 12.9, Plt Count 182, MPV 11.7 01/18/19 05:32: Creatinine 1.06 H, Estim Creat Clear Calc 60.31, Est GFR (MDRD) Af Amer 72, Est GFR (MDRD) Non-Af 60 Current Medications Acetaminophen (Tylenol) 1,000 mg PO Q8H PRN PRN PRN Reason: Pain Score 1-3/10 or Fever Docusate Sodium (Colace) 100 mg PO BID PRN PRN PRN Reason: Constipation Estrogens Conjugated (Premarin) 1.25 mg PO DAILY [facility] Last Admin: 01/17/19 15:08 Dose: 1.25 mg Documented by: Gabapentin (Neurontin) 300 mg PO TIDCM [facility] Last Admin: 01/17/19 17:12 Dose: 300 mg Documented by: Hydromorphone HCl (Dilaudid Inj) 0.5 mg IV Q3H PRN PRN PRN Reason: Pain Score 4-10/10 Sodium Chloride () 250 mls @ 15 mls/hr IV .[id number] PRN PRN Reason: Saline Flush Ketorolac Tromethamine (Toradol) 10 mg PO Q6H [facility] Stop: 01/22/19 16:00 Metoprolol Tartrate (Lopressor (Beta Marissa)) 100 mg PO BID [facility] Last Admin: 01/17/19 22:07 Dose: 100 mg Documented by: Ondansetron HCl (Zofran) 4 mg IV Q4H PRN PRN PRN Reason: NAUSEA Last Admin: 01/17/19 17:08 Dose: 4 mg Documented by: Oxycodone HCl (Oxyir) 5 mg PO Q4H PRN PRN PRN Reason: Pain Score 4-10/10 Simethicone (Mylicon) 80 mg PO [facility] Last Admin: 01/17/19 22:08 Dose: 80 mg Documented by: Sodium Chloride () 10 - 40 ml IV UD PRN PRN Reason: SALINE FLUSH Last Admin: 01/18/19 03:00 Dose: 10 ml Documented by: Medical Necessity - Tobacco Use Smoking Status: Never smoker Tobacco Use: Non-smoker Assessment/Plan Doing well postoperative day #1 status post robotic assisted vaginal hysterectomy and bilateral salpingo-oophorectomy. Will release to home with routine instructions when able to void on own later today.
[2019-01-18 08:50] VITALS: BP 141/81; PULSE 90; RESP 16; TEMP 37.2; O2SAT 99
[2019-01-18 09:13] VITALS: PULSE 90
[2019-01-18] MEDS: Acetaminophen 500 MG Tablet 1000 MG PO (09:13)
[2019-01-18] MEDS: Metoprolol Tartrate 100 MG Tablet PO (09:13)
[2019-01-18] MEDS: Gabapentin 300 MG Capsule PO ×2 (09:13→13:10)
[2019-01-18] MEDS: Estrogens,Conj. 1.25 MG Tablet PO (09:13)
[2019-01-18] MEDS: Ketorolac 10 MG Tablet PO ×2 (09:14→15:17)
[2019-01-18 11:42] VITALS: O2SAT 98
[2019-01-18 15:34] VITALS: BP 131/69; PULSE 81; RESP 16; TEMP 37; O2SAT 99
== END 2019-01-18 16:18 | disposition home or self-care (01) ==
LOC: SDC 05:35 → AC 05:35 → MS3 09:09
PROVIDERS: Anesthesiology; Family Provider Family Medicine; PCP Family Medicine; Referring Provider Obstetrics & Gynecology; Visit Provider Obstetrics & Gynecology
PROC: 0UT94ZZ Resection of Uterus, Percutaneous Endoscopic Approach (ICD-10-PCS; CPT 58571; principal; 2019-01-17 07:10)
DX: N88.8 Other specified noninflammatory disorders of cervix uteri (principal); D25.9 Leiomyoma of uterus, unspecified; N80.0 Endometriosis of uterus; N83.12 Corpus luteum cyst of left ovary; N83.11 Corpus luteum cyst of right ovary; N83.292 Other ovarian cyst, left side; N83.291 Other ovarian cyst, right side; N83.8 Other noninflammatory disorders of ovary, fallopian tube and broad ligament; M19.90 Unspecified osteoarthritis, unspecified site; M41.9 Scoliosis, unspecified; I10 Essential (primary) hypertension; K76.0 Fatty (change of) liver, not elsewhere classified; Z87.01 Personal history of pneumonia (recurrent); Z87.442 Personal history of urinary calculi; Z79.899 Other long term (current) drug therapy
CPT/HCPCS: 00940; 58571; S2900; 36415; 81025; 82565; 85027; 85610; 85730; 86850; 86900; 86901; 88307; 99251; J7120; A4216; G0463; J2405

== ENCOUNTER → 2019-09-30 16:33 | Outpatient (CLI) | payer OTHER, MEDICARE, SELFPAY ==
[2019-01-17 12:38] VITALS: BMI 33.0
--- NOTE | 2019-09-30 16:37 | RAD_ITS ---
HISTORY: fell last night on arm, left wrist pain/swelling EXAMINATION/TECHNIQUE: XR : Left first 3 views COMPARISON: None FINDINGS: No fracture, dislocation, or bony abnormality. Joint spaces are preserved. Normal bony alignment. No suspicious soft tissue swelling. RAD/Wrist min 3 Views IMPRESSION: Negative exam. No fracture or acute osseous abnormality. at 2305 Reported and signed by: Chandler Rodriguez MD Electronically Signed: Chandler Rodriguez, at 23:04 EDT Tel , Service support ,
== END ==
PROVIDERS: PCP Family Medicine; Referring Provider Family Medicine; Visit Provider Family Medicine
DX: S69.92XA Unspecified injury of left wrist, hand and finger(s), initial encounter (principal)
CPT/HCPCS: 73110

== ENCOUNTER → 2019-10-05 11:54 | Outpatient (CLI) | payer OTHER, MEDICARE, SELFPAY ==
[2019-01-17 12:38] VITALS: BMI 33.0
[2019-10-05 15:45] LABS: Anion Gap 4 (5-15); BUN 12 mg/dL (7-18); BUN/Creat Ratio 14.6 RATIO (10-20); Calcium,Total 8.8 mg/dL (8.5-10.1); Chloride 107 mmol/L (98-107); Cholesterol 173 mg/dL (200); Creatinine, Serum 0.82 mg/dL (0.55-1.02); EST Glomerular Filtration Rate 79 mL/min (>60); Est Glom Filt Rate - Afr Amer 96 mL/min (>60); Glucose 86 mg/dL (74-106); High Density Lipoprotein 35 mg/dL; Potassium 4.2 mmol/L (3.5-5.1); Sodium Level 139 mmol/L (136-145); Triglycerides 179 mg/dL; Very Low Density Lipoprotein 36 mg/dL (5-40)
== END ==
PROVIDERS: PCP Family Medicine; Referring Provider Family Medicine; Visit Provider Family Medicine
DX: I10 Essential (primary) hypertension (principal)
CPT/HCPCS: 36415; 80048; 80061

== ENCOUNTER → 2020-04-06 13:58 | Outpatient (CLI) | payer OTHER, MEDICARE, SELFPAY ==
[2019-01-17 12:38] VITALS: BMI 33.0
--- NOTE | 2020-04-06 14:03 | RAD_ITS ---
STUDY: X-RAY - RIGHT FOOT CLINICAL: Female, 44 years old. right heel pain since before January TECHNIQUE: 3 view(s) of the foot. COMPARISON: None. FINDINGS: Normal talus, calcaneus, and tarsal bones. Normal visualized subtalar, talonavicular, calcaneocuboid, tarsal and tarsometatarsal articulations. Normal metatarsi. Normal metatarsophalangeal joint of the great toe. Normal tibial and fibular sesamoid bones. Normal interphalangeal joint of the great toe. Normal phalanges of the great toe. Normal second through fifth metatarsophalangeal joints. Normal interphalangeal joints and phalanges of the lesser toes. The soft tissue structures are unremarkable. There is no demonstrated fracture. RAD/Foot min 3 Views IMPRESSION: Normal x-ray examination of the foot. Electronically Signed: Martin Castañeda MD at 23:57 EST , Service support ,
--- NOTE | 2020-04-06 14:03 | RAD_ITS ---
STUDY: X-RAY - LEFT FOOT CLINICAL: Female, 44 years old. pt states left foot pain-ball of foot since before January TECHNIQUE: 3 view(s) of the foot. COMPARISON: None. FINDINGS: Normal talus, calcaneus, and tarsal bones. Normal visualized subtalar, talonavicular, calcaneocuboid, tarsal and tarsometatarsal articulations. Normal metatarsi. Normal metatarsophalangeal joint of the great toe. Normal tibial and fibular sesamoid bones. Normal interphalangeal joint of the great toe. Normal phalanges of the great toe. Normal second through fifth metatarsophalangeal joints. Normal interphalangeal joints and phalanges of the lesser toes. The soft tissue structures are unremarkable. There is no demonstrated fracture. RAD/Foot min 3 Views IMPRESSION: Normal x-ray examination of the foot. Electronically Signed: Martin Castañeda MD at 23:57 EST , Service support ,
[2020-04-06 15:50] LABS: Anion Gap 5 (5-15); BUN 10 mg/dL (7-18); BUN/Creat Ratio 10.7 RATIO (10-20); Calcium,Total 9.8 mg/dL (8.5-10.1); Chloride 105 mmol/L (98-107); Cholesterol 188 mg/dL (200); Creatinine, Serum 0.93 mg/dL (0.55-1.02); EST Glomerular Filtration Rate 69 mL/min (>60); Est Glom Filt Rate - Afr Amer 83 mL/min (>60); Glucose 80 mg/dL (74-106); High Density Lipoprotein 43 mg/dL; Potassium 3.9 mmol/L (3.5-5.1); Sodium Level 140 mmol/L (136-145); Triglycerides 146 mg/dL; Very Low Density Lipoprotein 29 mg/dL (5-40)
== END ==
PROVIDERS: PCP Family Medicine; Referring Provider Family Medicine; Visit Provider Family Medicine
DX: M79.671 Pain in right foot (principal); M79.672 Pain in left foot; I10 Essential (primary) hypertension
CPT/HCPCS: 36415; 73630; 80048; 80061

== ENCOUNTER → 2020-06-18 10:38 | Outpatient (CLI) | payer OTHER, MEDICARE, SELFPAY ==
[2019-01-17 12:38] VITALS: BMI 33.0
--- NOTE | 2020-06-18 10:40 | BI_ITS ---
MAMMOGRAPHY - BILATERAL SCREENING REASON FOR EXAM: Female, 44 years old. Routine annual screening examination. PERTINENT HISTORY: Aunt with breast cancer. TECHNIQUE: Digital bilateral breast mayra (3D mammographic acquisition) in the CC and MLO projections. 2-D mediolateral oblique (MLO) and craniocaudad (CC) views of both breasts were obtained. CAD: Full Field Digital Mammography with Computer Added Detection was performed. COMPARISON: Comparison is made with prior examination dated 07/24/2014. FINDINGS: Breast Composition: There are scattered areas of fibroglandular density. There are no dominant masses or suspicious calcifications. Stable appearance of the right subpectoral breast implant. No other significant abnormalities are identified. There has been no significant change since the prior study. BI/SCRN MAMM (CAD)W/MAYRA BILAT IMPRESSION: Stable bilateral screening mammogram. Yearly follow-up mammogram recommended. (A) ASSESSMENT CATEGORY: BIRADS Category 2: Benign. A letter regarding these results will be sent to the patient by the facility within 30 days. Approximately 10% of breast cancers are not detected by mammography. A normal mammogram should not delay biopsy of a clinically suspicious abnormality. [id number] Electronically Signed: Bassam Santiago MD at 14:22 EDT , Service support ,
== END ==
PROVIDERS: PCP Family Medicine; Referring Provider Obstetrics & Gynecology; Visit Provider Obstetrics & Gynecology
DX: Z12.31 Encounter for screening mammogram for malignant neoplasm of breast (principal)
CPT/HCPCS: 77063; 77067

== ENCOUNTER → 2020-10-15 10:35 | Outpatient (CLI) | payer OTHER, MEDICARE, SELFPAY ==
[2019-01-17 12:38] VITALS: BMI 33.0
[2020-10-15 12:29] LABS: Anion Gap 7 (5-15); BUN 12 mg/dL (7-18); BUN/Creat Ratio 14.5 RATIO (10-20); Calcium,Total 9.4 mg/dL (8.5-10.1); Chloride 106 mmol/L (98-107); Cholesterol 186 mg/dL (200); Creatinine, Serum 0.83 mg/dL (0.55-1.02); EST Glomerular Filtration Rate 79 mL/min (>60); Est Glom Filt Rate - Afr Amer 95 mL/min (>60); Glucose 85 mg/dL (74-106); High Density Lipoprotein 41 mg/dL; Potassium 4.3 mmol/L (3.5-5.1); Sodium Level 139 mmol/L (136-145); Triglycerides 136 mg/dL; Very Low Density Lipoprotein 27 mg/dL (5-40)
[2020-10-15 12:38] LABS: Vitamin D,25 Hydroxy 39.8 ng/mL
== END ==
PROVIDERS: PCP Family Medicine; Referring Provider Family Medicine; Visit Provider Family Medicine
DX: I10 Essential (primary) hypertension (principal); R53.83 Other fatigue
CPT/HCPCS: 36415; 80048; 80061; 82306

== ENCOUNTER 2021-04-15 11:00 | Outpatient (CLI) | payer OTHER, MEDICARE, SELFPAY ==
[2021-04-15 12:38] LABS: Anion Gap 7 (5-15); BUN 14 mg/dL (7-18); BUN/Creat Ratio 18.1 RATIO (10-20); Chloride 106 mmol/L (98-107); Cholesterol 176 mg/dL (200); Creatinine, Serum 0.77 mg/dL (0.55-1.02); EST Glomerular Filtration Rate 85 mL/min (>60); Est Glom Filt Rate - Afr Amer 103 mL/min (>60); Glucose 90 mg/dL (74-106); High Density Lipoprotein 41 mg/dL; Potassium 4.3 mmol/L (3.5-5.1); Sodium Level 139 mmol/L (136-145); Triglycerides 143 mg/dL; Very Low Density Lipoprotein 29 mg/dL (5-40)
== END 2021-04-15 23:59 | disposition home or self-care (01) ==
LOC: MFPLAB 11:01
PROVIDERS: PCP Family Medicine; Visit Provider Family Medicine
DX: I10 Essential (primary) hypertension (principal)
CPT/HCPCS: 36415; 80048; 80061

== ENCOUNTER 2021-05-13 15:15 | Outpatient (CLI) | payer OTHER, MEDICARE, SELFPAY | END 2021-05-13 23:59 | disposition home or self-care (01) | LOC: LABSPEC 15:17 | PROVIDERS: PCP Family Medicine; Visit Provider Family Medicine | DX: N39.0 Urinary tract infection, site not specified (principal) | CPT/HCPCS: 87086; 87088 ==

== ENCOUNTER → 2022-01-06 | Outpatient (CLI) | payer OTHER, MEDICARE, SELFPAY ==
[2022-01-06 16:19] LABS: Hematocrit 41.2 % (37-47); Mean Corpuscular Volume 91.2 fL (81-99); Mean Platelet Vol. 11.6 fl (6.2-12.0); Platelet Count 265 K/mm3 (150-450); RBC Distribution Width CV 11.9 % (11.6-14.6); RBC Distribution Width SD 39.7 fl (35.1-43.9); Red Blood Count 4.52 M/mm3 (4.2-5.4); White Blood Count 7.4 K/mm3 (4.4-11.0)
[2022-01-06 17:06] LABS: T4 Free Direct 1.04 ng/dL (0.76-1.46)
[2022-01-06 17:09] LABS: Vitamin D,25 Hydroxy 33.7 ng/mL
== END | disposition home or self-care (01) ==
LOC: WOBLAB 15:30
PROVIDERS: PCP Family Medicine; Visit Provider Student in an Organized Health Care Education/Training Program
DX: R53.82 Chronic fatigue, unspecified (principal)
CPT/HCPCS: 36415; 82306; 84439; 84443; 85027

== ENCOUNTER 2022-02-10 11:01 | Outpatient (CLI) | payer OTHER, MEDICARE, SELFPAY ==
[2022-02-10 13:03] LABS: Vitamin D,25 Hydroxy 34.1 ng/mL
[2022-02-10 13:19] LABS: Anion Gap 6 (5-15); BUN 9 mg/dL (7-18); BUN/Creat Ratio 9.4 RATIO (10-20); Calcium,Total 9.5 mg/dL (8.5-10.1); Chloride 106 mmol/L (98-107); Cholesterol 180 mg/dL (200); Creatinine, Serum 0.96 mg/dL (0.55-1.02); EST Glomerular Filtration Rate 66 mL/min (>60); Est Glom Filt Rate - Afr Amer 80 mL/min (>60); Glucose 92 mg/dL (74-106); High Density Lipoprotein 46 mg/dL; Potassium 4.4 mmol/L (3.5-5.1); Sodium Level 141 mmol/L (136-145); Triglycerides 110 mg/dL; Very Low Density Lipoprotein 22 mg/dL (5-40)
== END 2022-02-10 23:59 | disposition home or self-care (01) ==
LOC: MFPLAB 11:04
PROVIDERS: PCP Family Medicine; Visit Provider Family Medicine
DX: E55.9 Vitamin D deficiency, unspecified (principal); I10 Essential (primary) hypertension
CPT/HCPCS: 36415; 80048; 80061; 82306

== ENCOUNTER 2022-02-10 15:08 | Outpatient (CLI) | payer OTHER, MEDICARE, SELFPAY ==
--- NOTE | 2022-02-10 15:17 | BI_ITS ---
MAMMOGRAPHY - BILATERAL SCREENING REASON FOR EXAM: Female, 46 years old. Routine annual screening examination. PERTINENT HISTORY: Aunt with breast cancer. Right breast implant. Prior right stereotactic breast biopsy. TECHNIQUE: Digital bilateral breast mayra (3D mammographic acquisition) in the CC and MLO projections. 2-D mediolateral oblique (MLO) and craniocaudad (CC) views of both breasts were obtained. CAD: Full Field Digital Mammography with Computer Added Detection was performed. COMPARISON: Comparison is made with prior study DATED 06/18/2020 and 07/24/2014. FINDINGS: Breast Composition: There are scattered areas of fibroglandular density. There are no dominant masses or suspicious calcifications. Stable appearance of the right subpectoral breast implant. No other significant abnormalities are identified. There has been no significant change since the prior study. BI/SCRN MAMM (CAD)W/MAYRA BILAT IMPRESSION: Stable bilateral screening mammogram. Yearly follow-up mammogram recommended. (A) ASSESSMENT CATEGORY: BIRADS Category 2: Benign. A letter regarding these results will be sent to the patient by the facility within 30 days. Approximately 10% of breast cancers are not detected by mammography. A normal mammogram should not delay biopsy of a clinically suspicious abnormality. [id number] Electronically Signed: Bassam Santiago MD at 8:04 EST ,
== END 2022-02-10 23:59 | disposition home or self-care (01) ==
LOC: OPBI 15:08
PROVIDERS: PCP Family Medicine; Referring Provider Student in an Organized Health Care Education/Training Program; Visit Provider Student in an Organized Health Care Education/Training Program
DX: Z12.31 Encounter for screening mammogram for malignant neoplasm of breast (principal); Z98.82 Breast implant status; Z80.3 Family history of malignant neoplasm of breast
CPT/HCPCS: 77063; 77067

== ENCOUNTER → 2022-08-07 | Outpatient (CLI) | payer OTHER, MEDICARE, SELFPAY ==
[2022-08-07 12:39] LABS: Anion Gap 10 (5-15); BUN 14 mg/dL (7-18); BUN/Creat Ratio 18.9 RATIO (10-20); Calcium,Total 9.5 mg/dL (8.5-10.1); Chloride 107 mmol/L (98-107); Creatinine, Serum 0.74 mg/dL (0.55-1.02); EST Glomerular Filtration Rate 89 mL/min (>60); Est Glom Filt Rate - Afr Amer 107 mL/min (>60); Glucose 90 mg/dL (74-106); Potassium 4.2 mmol/L (3.5-5.1); Sodium Level 142 mmol/L (136-145)
== END | disposition home or self-care (01) ==
LOC: MFPLAB 11:14
PROVIDERS: Family Medicine; PCP Family Medicine; Visit Provider Family Medicine
DX: I10 Essential (primary) hypertension (principal)
CPT/HCPCS: 36415; 80048

== ENCOUNTER → 2023-02-11 | Outpatient (CLI) | payer OTHER, MEDICARE, SELFPAY ==
[2023-02-11 13:11] LABS: Anion Gap 8 (5-15); BUN 10 mg/dL (7-18); BUN/Creat Ratio 13.1 RATIO (10-20); Calcium,Total 9.1 mg/dL (8.5-10.1); Chloride 105 mmol/L (98-107); Cholesterol 177 mg/dL (200); Creatinine, Serum 0.77 mg/dL (0.55-1.02); EST Glomerular Filtration Rate 85 mL/min (>60); Est Glom Filt Rate - Afr Amer 103 mL/min (>60); Glucose 83 mg/dL (74-106); High Density Lipoprotein 45 mg/dL; Potassium 3.9 mmol/L (3.5-5.1); Sodium Level 140 mmol/L (136-145); Triglycerides 124 mg/dL; Very Low Density Lipoprotein 25 mg/dL (5-40)
== END | disposition home or self-care (01) ==
LOC: MFPLAB 11:10
PROVIDERS: PCP Family Medicine; Visit Provider Family Medicine
DX: I10 Essential (primary) hypertension (principal)
CPT/HCPCS: 36415; 80048; 80061

== ENCOUNTER → 2025-01-27 | Outpatient (CLI) | payer OTHER, MEDICARE, SELFPAY ==
[2025-01-27 15:24] LABS: Hematocrit 41.8 % (37-47); Hemoglobin 13.6 g/dL (12.0-15.0); Immature Granulocytes Count 0.030 X10^3/uL (0.0-0.0); Mean Corp Hgb Conc 32.5 g/dL (32-36); Mean Corpuscular Volume 92.3 fL (81-99); Mean Platelet Vol. 11.7 fl (6.2-12.0); NRBC Flagged by Analyzer 0 % (0-5); Platelet Count 253 K/mm3 (150-450); RBC Distribution Width CV 12.2 % (11.6-14.6); RBC Distribution Width SD 41.7 fl (35.1-43.9); Red Blood Count 4.53 M/mm3 (4.2-5.4); White Blood Count 8.5 K/mm3 (4.4-11.0)
[2025-01-27 15:51] LABS: Anion Gap 11 (5-15); BUN 11 mg/dL (4-19); BUN/Creat Ratio 14.0 RATIO (10-20); Calcium,Total 9.3 mg/dL (7.6-11.0); Carbon Dioxide 26.5 mmol/L (21.0-32.0); Chloride 104 mmol/L (98-108); Glucose 98 mg/dL (70-99); Potassium 4.2 mmol/L (3.3-5.1); Troponin T High Sensitivity < 6 ng/L (<=14)
[2025-01-27 16:10] LABS: D-Dimer Quantitative (DVT/PE) 0.37 FEU/ug/m (0.27-0.49)
== END | disposition home or self-care (01) ==
LOC: MTLAB 13:59
PROVIDERS: PCP Family Medicine; Referring Provider Family Medicine; Visit Provider Family Medicine
DX: R07.9 Chest pain, unspecified (principal)
CPT/HCPCS: 36415; 80048; 84484; 85025; 85379